=== PATIENT | male | born 1960 | race Two or more races ===

== ENCOUNTER 2021-07-14 20:11 | Inpatient (IN) | payer OTHER, MEDICAID ==
[~2021-07-14] VITALS: Ht 172.7 cm; Wt 123.1 kg
[2021-07-15 02:47] LABS: Basophils # (auto) 0 10 ^3/uL (0-0.2); Eosinophils # (auto) 0 10 ^3/uL (0-0.8); Eosinophils % (auto) 0.1 % (0.0-7.0)
[2021-07-15 02:50] LABS: Basophils % (auto) 0.2 % (0.0-2.0); Hematocrit 21.3 % (41.0-53.0); Hemoglobin 7.4 g/dL (13.5-17.5); Lymphocytes # (auto) 0.6 10 ^3/uL (0.4-5.4); Lymphocytes % (auto) 3.3 % (10.0-50.0); Mean Corpuscular Hemoglobin 30.9 pg (28.0-32.0); Mean Corpuscular Hgb Conc. 34.6 g/dL (32.0-36.0); Mean Corpuscular Volume 89.5 fL (80.0-100.0); Monocytes # (auto) 2.2 10 ^3/uL (0-1.3); Monocytes % (auto) 12.2 % (0.0-12.0); Neutrophils # (auto) 14.9 10 ^3/uL (1.6-8.6); Neutrophils % (auto) 84.2 % (37.0-80.0); Red Blood Cells 2.38 10^6/uL (4.5-5.90); Red Cell Distribution Width 14.5 % (11.8-14.3); White Blood Cell 17.7 10^3/uL (4.4-10.8)
[2021-07-15 02:58] LABS: Albumin 2.2 g/dL (3.4-5.0); BUN/Creatinine Ratio 6.6; Calcium 8.2 mg/dL (8.5-10.1); Potassium 3.9 mmol/L (3.5-5.1)
[2021-07-15 03:01] LABS: Bilirubin, Total 0.7 mg/dL (0.2-1.0); Total Protein 6.4 g/dL (6.4-8.2)
[2021-07-15 06:01] LABS: Urine Bacteria NONE SEEN /hpf (None Seen); Urine Blood 3+ /uL (Negative); Urine Specific Gravity 1.018 (1.001-1.035); Urine WBC 1410 /hpf (0 - 3); Urine WBC Clumps PRESENT /hpf (None Seen)
[2021-07-15] MEDS ORDERED: cefTRIAXone 1GM/50ML D5W 50 ML IV ONE (06:30)
[2021-07-15] MEDS ORDERED: PROMETHAZINE HCL 25 MG/ML 1ML IV PRN (08:45)
[2021-07-15] MEDS ORDERED: MORPHINE SULFATE INJECTION 2 MG/ML SYRG IV PRN (08:45)
[2021-07-15] MEDS ORDERED: traMADol HCL 50 MG TAB PO PRN (08:45)
[2021-07-15] MEDS ORDERED: TEMAZEPAM 15 MG CAP PO PRN (08:45)
[2021-07-15] MEDS ORDERED: NITROGLYCERIN 0.4 MG SL TAB SL PRN (08:45)
[2021-07-15] MEDS ORDERED: DEXTROSE (50%) 50ML SYRG IV PRN (08:45)
[2021-07-15 08:53] LABS: INR 1.19 (0.9-1.15)
[2021-07-15] MEDS: cefTRIAXone 1GM/50ML D5W 50 ML IV SCH (09:00)
[2021-07-15 10:34] VITALS: BP 133/46
[2021-07-15 10:49] VITALS: BP 114/63
[2021-07-15] MEDS: InsuLIN REG 1unit/0.01ml Soln (100units/ml) SC SCH ×3 (11:30→21:51)
[2021-07-15] MEDS: ACCU-CHEK COMFORT CURVE STRIP VI SCH ×3 (11:54→21:51)
[2021-07-15 12:37] VITALS: BP 130/72
[2021-07-15 12:54] VITALS: BP 132/64
[2021-07-15] MEDS ORDERED: FURO40TA4 PO (15:30)
[2021-07-15] MEDS ORDERED: PANT40TA2 PO (15:30)
[2021-07-15] MEDS ORDERED: ASPI-717 PO (15:30)
[2021-07-15] MEDS ORDERED: DULO20CA PO (15:30)
[2021-07-15] MEDS ORDERED: METO-158 PO (15:30)
[2021-07-15] MEDS ORDERED: NIFE90TA49 PO (15:30)
[2021-07-15] MEDS ORDERED: ATOR-47 PO (15:30)
[2021-07-15] MEDS ORDERED: INSLANTI SC (15:30)
[2021-07-15] MEDS ORDERED: FERR-20 PO (15:30)
[2021-07-15] MEDS ORDERED: GABA300C10 PO (15:30)
[2021-07-15] MEDS ORDERED: FINA5TAB4 PO (15:30)
[2021-07-15] MEDS ORDERED: FLUT250M2 INH (15:30)
[2021-07-15] MEDS ORDERED: MAGN400T40 PO (15:30)
[2021-07-15] MEDS ORDERED: CHOL20007 PO (15:30)
[2021-07-15] MEDS ORDERED: LOPE2CAP PO (15:30)
[2021-07-15 17:00] VITALS: BP 129/62
[2021-07-15] MEDS: METOPROLOL TARTRATE 50 MG TAB PO SCH (21:31)
[2021-07-15] MEDS: ATORVASTATIN 20 MG TAB PO SCH (21:31)
[2021-07-15 22:00] VITALS: BP 137/62
[2021-07-15] MEDS: LORazepam 0.5 MG TAB PO PRN (23:00)
[2021-07-16] VITALS (7 sets, daily range): BP systolic 60–141; BP diastolic 57–76
[2021-07-16 05:59] LABS: Eosinophils # (auto) 0.1 10 ^3/uL (0-0.8); Lymphocytes # (auto) 0.8 10 ^3/uL (0.4-5.4); Monocytes # (auto) 1.7 10 ^3/uL (0-1.3); Neutrophils % (auto) 82.3 % (37.0-80.0)
[2021-07-16 06:01] LABS: Basophils # (auto) 0 10 ^3/uL (0-0.2); Basophils % (auto) 0.2 % (0.0-2.0); Hematocrit 20.6 % (41.0-53.0); Hemoglobin 7.2 g/dL (13.5-17.5); Lymphocytes % (auto) 5.5 % (10.0-50.0); Mean Corpuscular Hemoglobin 30.8 pg (28.0-32.0); Mean Corpuscular Hgb Conc. 34.7 g/dL (32.0-36.0); Mean Corpuscular Volume 88.7 fL (80.0-100.0); Neutrophils # (auto) 12.6 10 ^3/uL (1.6-8.6); Red Blood Cells 2.33 10^6/uL (4.5-5.90); Red Cell Distribution Width 14.6 % (11.8-14.3); White Blood Cell 15.3 10^3/uL (4.4-10.8)
[2021-07-16 06:09] LABS: Albumin 1.9 g/dL (3.4-5.0); BUN/Creatinine Ratio 8.2; Calcium 7.8 mg/dL (8.5-10.1); Potassium 3.6 mmol/L (3.5-5.1)
[2021-07-16 06:11] LABS: Bilirubin, Total 0.7 mg/dL (0.2-1.0); Total Protein 5.4 g/dL (6.4-8.2)
[2021-07-16] MEDS: ACCU-CHEK COMFORT CURVE STRIP VI SCH ×4 (06:26→21:49)
[2021-07-16] MEDS: InsuLIN REG 1unit/0.01ml Soln (100units/ml) SC SCH ×4 (06:26→22:01)
[2021-07-16] MEDS: cefTRIAXone 1GM/50ML D5W 50 ML IV SCH (08:55)
[2021-07-16] MEDS: METOPROLOL TARTRATE 50 MG TAB PO SCH ×2 (08:56→21:53)
[2021-07-16] MEDS ORDERED: LIDOCAINE 2% JELLY 11ml (GLYDO) UR ONE (16:00)
[2021-07-16] MEDS: FERROUS SULFATE 325mg EC TAB PO SCH (18:09)
[2021-07-16] MEDS: ATORVASTATIN 20 MG TAB PO SCH (21:52)
[2021-07-16] MEDS: Fluticasone-Salmeterol (Advair Diskus 250/50) IN SCH (22:00)
[2021-07-16] MEDS ORDERED: LOPERAMIDE HCL 2 MG CAP PO PRN (22:00)
[2021-07-16] MEDS: LORazepam 0.5 MG TAB PO PRN (22:09)
[2021-07-17 05:00] VITALS: BP_SYST 106; BP_SYST 155; BP_DIAS 70; BP_DIAS 74
[2021-07-17 05:45] LABS: BUN/Creatinine Ratio 10.1; Calcium 7.9 mg/dL (8.5-10.1); Potassium 4.1 mmol/L (3.5-5.1)
[2021-07-17] MEDS: ACCU-CHEK COMFORT CURVE STRIP VI SCH ×4 (06:26→21:43)
[2021-07-17] MEDS: InsuLIN REG 1unit/0.01ml Soln (100units/ml) SC SCH ×4 (06:26→22:01)
[2021-07-17] MEDS: FERROUS SULFATE 325mg EC TAB PO SCH ×2 (08:19→17:43)
[2021-07-17 09:00] VITALS: BP 151/68
[2021-07-17 09:40] LABS: Eosinophils # (auto) 0.2 10 ^3/uL (0-0.8); Hemoglobin 7.3 g/dL (13.5-17.5); Neutrophils # (auto) 7.2 10 ^3/uL (1.6-8.6)
[2021-07-17 09:42] LABS: Basophils # (auto) 0 10 ^3/uL (0-0.2); Basophils % (auto) 0.3 % (0.0-2.0); Eosinophils % (auto) 1.9 % (0.0-7.0); Hematocrit 20.8 % (41.0-53.0); Lymphocytes # (auto) 0.6 10 ^3/uL (0.4-5.4); Lymphocytes % (auto) 6.6 % (10.0-50.0); Mean Corpuscular Hemoglobin 31.1 pg (28.0-32.0); Mean Corpuscular Volume 88.9 fL (80.0-100.0); Monocytes # (auto) 1.1 10 ^3/uL (0-1.3); Monocytes % (auto) 12.5 % (0.0-12.0); Neutrophils % (auto) 78.7 % (37.0-80.0); Red Blood Cells 2.34 10^6/uL (4.5-5.90); Red Cell Distribution Width 14.6 % (11.8-14.3); White Blood Cell 9.1 10^3/uL (4.4-10.8)
[2021-07-17] MEDS: cefTRIAXone 1GM/50ML D5W 50 ML IV SCH (09:53)
[2021-07-17] MEDS: DULOXETINE HCL 20 MG PO SCH (09:53)
[2021-07-17] MEDS: Fluticasone-Salmeterol (Advair Diskus 250/50) IN SCH ×2 (09:53→21:43)
[2021-07-17] MEDS: METOPROLOL TARTRATE 50 MG TAB PO SCH ×2 (09:54→21:51)
[2021-07-17] MEDS: FUROSEMIDE 40 MG TAB PO SCH (09:54)
[2021-07-17] MEDS: FINASTERIDE 5 MG TAB PO SCH (09:55)
[2021-07-17] MEDS: PANTOPRAZOLE 40 MG TAB PO SCH (09:55)
[2021-07-17] MEDS: NIFEdipine ER 30 MG TAB PO SCH (09:55)
[2021-07-17] MEDS ORDERED: GABAPENTIN 300 MG CAP PO SCH (10:00)
[2021-07-17] MEDS: INSULIN LANTUS (GLARGINE) 1 /0.01ml (100units/ml) SC SCH (10:05)
[2021-07-17] MEDS: ACETAMINOPHEN 500 MG TAB PO PRN (10:28)
[2021-07-17 13:11] VITALS: BP 165/78
[2021-07-17] MEDS: PIPERACILLIN-TAZOB 2.25GM 50 ML IV SCH ×2 (14:40→19:20)
[2021-07-17 17:00] VITALS: BP 143/77
[2021-07-17] MEDS: LORazepam 0.5 MG TAB PO PRN (21:50)
[2021-07-17] MEDS: ATORVASTATIN 20 MG TAB PO SCH (21:50)
[2021-07-17] MEDS: GABAPENTIN 300 MG CAP PO SCH (21:51)
[2021-07-17 22:00] VITALS: BP 138/72
[2021-07-17] MEDS ORDERED: CHOLESTYRAMINE 4 GM POWDER GT SCH (23:00)
[2021-07-18] MEDS: PIPERACILLIN-TAZOB 2.25GM 50 ML IV SCH ×4 (01:36→19:58)
[2021-07-18 05:00] VITALS: BP 133/74
[2021-07-18 05:39] LABS: Hemoglobin 7.8 g/dL (13.5-17.5); White Blood Cell 8.6 10^3/uL (4.4-10.8)
[2021-07-18 05:44] LABS: Hematocrit 22.4 % (41.0-53.0); Mean Corpuscular Hemoglobin 31.1 pg (28.0-32.0); Mean Corpuscular Hgb Conc. 34.8 g/dL (32.0-36.0); Mean Corpuscular Volume 89.4 fL (80.0-100.0); Red Blood Cells 2.51 10^6/uL (4.5-5.90)
[2021-07-18 05:58] LABS: Basophils % (manual) 0 (0.0-2.0); Blast Cells 0; Metamyelocytes % 0; Myelocytes % 0; Promyelocytes % 0; Reactive Lymphocytes 0
[2021-07-18 06:03] LABS: Potassium 4.3 mmol/L (3.5-5.1)
[2021-07-18 06:10] LABS: Albumin 2.1 g/dL (3.4-5.0); BUN/Creatinine Ratio 11.8; Bilirubin, Total 0.3 mg/dL (0.2-1.0); Total Protein 5.9 g/dL (6.4-8.2)
[2021-07-18] MEDS: ACCU-CHEK COMFORT CURVE STRIP VI SCH ×4 (06:49→22:01)
[2021-07-18] MEDS: InsuLIN REG 1unit/0.01ml Soln (100units/ml) SC SCH ×4 (06:49→22:00)
[2021-07-18] MEDS: FERROUS SULFATE 325mg EC TAB PO SCH ×2 (08:05→17:41)
[2021-07-18 08:29] LABS: Band Neutrophils % (manual) 3; Eosinophils % (manual) 3 (0-7); Lymphocytes % (manual) 9 (10.0-50.0); Monocytes % (manual) 15 (0-12)
[2021-07-18 09:00] VITALS: BP 129/61
[2021-07-18] MEDS: Fluticasone-Salmeterol (Advair Diskus 250/50) IN SCH ×2 (10:00→22:00)
[2021-07-18] MEDS: DULOXETINE HCL 20 MG PO SCH (10:09)
[2021-07-18] MEDS: METOPROLOL TARTRATE 50 MG TAB PO SCH ×2 (10:10→22:06)
[2021-07-18] MEDS: FUROSEMIDE 40 MG TAB PO SCH (10:10)
[2021-07-18] MEDS: GABAPENTIN 300 MG CAP PO SCH ×2 (10:10→22:06)
[2021-07-18] MEDS: FINASTERIDE 5 MG TAB PO SCH (10:11)
[2021-07-18] MEDS: NIFEdipine ER 30 MG TAB PO SCH (10:11)
[2021-07-18] MEDS: PANTOPRAZOLE 40 MG TAB PO SCH (10:11)
[2021-07-18] MEDS: INSULIN LANTUS (GLARGINE) 1 /0.01ml (100units/ml) SC SCH (10:14)
[2021-07-18] MEDS: CHOLESTYRAMINE 4 GM POWDER GT SCH ×3 (11:47→22:05)
[2021-07-18 13:00] VITALS: BP 143/71
[2021-07-18 17:00] VITALS: BP 117/54
[2021-07-18 21:40] VITALS: BP 125/62
[2021-07-18] MEDS: ATORVASTATIN 20 MG TAB PO SCH (22:05)
[2021-07-18] MEDS: LORazepam 0.5 MG TAB PO PRN (22:15)
[2021-07-19 00:45] VITALS: BP 125/62
[2021-07-19] MEDS: PIPERACILLIN-TAZOB 2.25GM 50 ML IV SCH ×4 (01:45→20:28)
[2021-07-19 05:06] VITALS: BP 114/55
[2021-07-19] MEDS: CHOLESTYRAMINE 4 GM POWDER GT SCH ×4 (05:33→21:09)
[2021-07-19] MEDS: ACCU-CHEK COMFORT CURVE STRIP VI SCH ×4 (06:31→22:13)
[2021-07-19] MEDS: InsuLIN REG 1unit/0.01ml Soln (100units/ml) SC SCH ×4 (06:32→22:29)
[2021-07-19 07:51] LABS: Basophils # (auto) 0.1 10 ^3/uL (0-0.2); Basophils % (auto) 0.8 % (0.0-2.0); Eosinophils # (auto) 0.4 10 ^3/uL (0-0.8); Eosinophils % (auto) 4.7 % (0.0-7.0); Hemoglobin 7.6 g/dL (13.5-17.5); Lymphocytes # (auto) 0.9 10 ^3/uL (0.4-5.4); Lymphocytes % (auto) 9.5 % (10.0-50.0); Mean Corpuscular Hemoglobin 30.3 pg (28.0-32.0); Mean Corpuscular Hgb Conc. 34.4 g/dL (32.0-36.0); Mean Corpuscular Volume 88.1 fL (80.0-100.0); Monocytes # (auto) 1.3 10 ^3/uL (0-1.3); Monocytes % (auto) 13.9 % (0.0-12.0); Neutrophils # (auto) 6.6 10 ^3/uL (1.6-8.6); Neutrophils % (auto) 71.1 % (37.0-80.0); Red Cell Distribution Width 14.4 % (11.8-14.3); White Blood Cell 9.2 10^3/uL (4.4-10.8)
[2021-07-19 08:05] LABS: Calcium 7.8 mg/dL (8.5-10.1); Potassium 4.5 mmol/L (3.5-5.1)
[2021-07-19 08:09] LABS: BUN/Creatinine Ratio 10.5; Bilirubin, Total 0.3 mg/dL (0.2-1.0); Total Protein 5.7 g/dL (6.4-8.2)
[2021-07-19] MEDS: Fluticasone-Salmeterol (Advair Diskus 250/50) IN SCH ×2 (08:58→21:14)
[2021-07-19] MEDS: FERROUS SULFATE 325mg EC TAB PO SCH ×2 (08:59→17:17)
[2021-07-19] MEDS: NIFEdipine ER 30 MG TAB PO SCH (08:59)
[2021-07-19] MEDS: PANTOPRAZOLE 40 MG TAB PO SCH (08:59)
[2021-07-19] MEDS: FINASTERIDE 5 MG TAB PO SCH (09:00)
[2021-07-19] MEDS: GABAPENTIN 300 MG CAP PO SCH ×2 (09:00→22:20)
[2021-07-19] MEDS: FUROSEMIDE 40 MG TAB PO SCH (09:00)
[2021-07-19] MEDS: METOPROLOL TARTRATE 50 MG TAB PO SCH ×2 (09:00→22:20)
[2021-07-19 09:10] VITALS: BP 122/62
[2021-07-19] MEDS: DULOXETINE HCL 20 MG PO SCH (10:14)
[2021-07-19] MEDS: INSULIN LANTUS (GLARGINE) 1 /0.01ml (100units/ml) SC SCH (11:59)
[2021-07-19 13:00] VITALS: BP 120/63
[2021-07-19 17:00] VITALS: BP 138/67
[2021-07-19] MEDS: SOD CHL 0.45% 1,000 ML IV SCH (17:17)
[2021-07-19 22:00] VITALS: BP 126/61
[2021-07-19] MEDS: ATORVASTATIN 20 MG TAB PO SCH (22:19)
[2021-07-19] MEDS: LORazepam 0.5 MG TAB PO PRN (22:32)
[2021-07-20] MEDS: PIPERACILLIN-TAZOB 2.25GM 50 ML IV SCH ×4 (01:16→21:39)
[2021-07-20] MEDS: ACETAMINOPHEN 500 MG TAB PO PRN (03:35)
[2021-07-20 05:00] VITALS: BP 133/64
[2021-07-20] MEDS: ACCU-CHEK COMFORT CURVE STRIP VI SCH ×4 (06:19→21:41)
[2021-07-20] MEDS: CHOLESTYRAMINE 4 GM POWDER GT SCH ×4 (06:19→21:40)
[2021-07-20] MEDS: InsuLIN REG 1unit/0.01ml Soln (100units/ml) SC SCH ×4 (06:30→21:42)
[2021-07-20 07:29] LABS: Basophils # (auto) 0.1 10 ^3/uL (0-0.2); Eosinophils # (auto) 0.5 10 ^3/uL (0-0.8); Hemoglobin 8.1 g/dL (13.5-17.5); Monocytes # (auto) 1.1 10 ^3/uL (0-1.3); Neutrophils # (auto) 8.7 10 ^3/uL (1.6-8.6); Red Cell Distribution Width 14.1 % (11.8-14.3)
[2021-07-20 07:32] LABS: Basophils % (auto) 0.9 % (0.0-2.0); Eosinophils % (auto) 4.4 % (0.0-7.0); Hematocrit 24.1 % (41.0-53.0); Lymphocytes % (auto) 8.8 % (10.0-50.0); Mean Corpuscular Hemoglobin 30.5 pg (28.0-32.0); Mean Corpuscular Hgb Conc. 33.7 g/dL (32.0-36.0); Mean Corpuscular Volume 90.3 fL (80.0-100.0); Monocytes % (auto) 9.5 % (0.0-12.0); Neutrophils % (auto) 76.4 % (37.0-80.0); Red Blood Cells 2.67 10^6/uL (4.5-5.90); White Blood Cell 11.3 10^3/uL (4.4-10.8)
[2021-07-20 07:52] LABS: Albumin 2.1 g/dL (3.4-5.0); Calcium 7.6 mg/dL (8.5-10.1); Potassium 4.9 mmol/L (3.5-5.1)
[2021-07-20 07:56] LABS: BUN/Creatinine Ratio 10.9; Bilirubin, Total 0.3 mg/dL (0.2-1.0)
[2021-07-20] MEDS: FERROUS SULFATE 325mg EC TAB PO SCH ×2 (08:23→17:59)
[2021-07-20 09:03] VITALS: BP 126/51
[2021-07-20] MEDS: DULOXETINE HCL 20 MG PO SCH (09:58)
[2021-07-20] MEDS: FUROSEMIDE 40 MG TAB PO SCH (09:58)
[2021-07-20] MEDS: GABAPENTIN 300 MG CAP PO SCH ×2 (09:58→21:41)
[2021-07-20] MEDS: METOPROLOL TARTRATE 50 MG TAB PO SCH ×2 (09:58→21:40)
[2021-07-20] MEDS: PANTOPRAZOLE 40 MG TAB PO SCH (09:59)
[2021-07-20] MEDS: NIFEdipine ER 30 MG TAB PO SCH (09:59)
[2021-07-20] MEDS: FINASTERIDE 5 MG TAB PO SCH (09:59)
[2021-07-20] MEDS: Fluticasone-Salmeterol (Advair Diskus 250/50) IN SCH ×2 (10:00→21:45)
[2021-07-20] MEDS: INSULIN LANTUS (GLARGINE) 1 /0.01ml (100units/ml) SC SCH (12:05)
[2021-07-20] MEDS: SOD CHL 0.45% 1,000 ML IV SCH (12:30)
[2021-07-20 12:57] VITALS: BP 138/66
[2021-07-20] MEDS ORDERED: LEVO-28 PO (17:21)
[2021-07-20] MEDS ORDERED: CHL4PW GT (17:21)
[2021-07-20 17:22] VITALS: BP 160/78
[2021-07-20] MEDS: ATORVASTATIN 20 MG TAB PO SCH (21:40)
[2021-07-20] MEDS: LORazepam 0.5 MG TAB PO PRN (21:46)
[2021-07-20 22:00] VITALS: BP 128/63
[2021-07-21] MEDS: ACETAMINOPHEN 500 MG TAB PO PRN ×3 (01:35→09:37)
[2021-07-21] MEDS: PIPERACILLIN-TAZOB 2.25GM 50 ML IV SCH ×3 (01:45→13:33)
[2021-07-21 05:09] VITALS: BP 138/71
[2021-07-21] MEDS: CHOLESTYRAMINE 4 GM POWDER GT SCH ×2 (06:21→11:54)
[2021-07-21 06:49] LABS: Hemoglobin 8.4 g/dL (13.5-17.5)
[2021-07-21 06:53] LABS: Hematocrit 23.7 % (41.0-53.0); Mean Corpuscular Hgb Conc. 35.3 g/dL (32.0-36.0); Mean Corpuscular Volume 90.5 fL (80.0-100.0); Red Blood Cells 2.62 10^6/uL (4.5-5.90); Red Cell Distribution Width 14.1 % (11.8-14.3); White Blood Cell 14.1 10^3/uL (4.4-10.8)
[2021-07-21 06:58] LABS: Band Neutrophils % (manual) 0; Basophils % (manual) 0 (0.0-2.0); Blast Cells 0; Metamyelocytes % 0; Myelocytes % 0; Promyelocytes % 0; Reactive Lymphocytes 0
[2021-07-21] MEDS: InsuLIN REG 1unit/0.01ml Soln (100units/ml) SC SCH ×2 (07:00→11:56)
[2021-07-21 07:02] LABS: Potassium 5.4 mmol/L (3.5-5.1)
[2021-07-21 07:14] LABS: Albumin 2.4 g/dL (3.4-5.0); BUN/Creatinine Ratio 10.6; Bilirubin, Total 0.3 mg/dL (0.2-1.0); Calcium 7.9 mg/dL (8.5-10.1); Total Protein 6.4 g/dL (6.4-8.2)
[2021-07-21 07:38] LABS: Eosinophils % (manual) 5 (0-7); Lymphocytes % (manual) 9 (10.0-50.0); Monocytes % (manual) 8 (0-12)
[2021-07-21] MEDS: FERROUS SULFATE 325mg EC TAB PO SCH (08:05)
[2021-07-21] MEDS: ACCU-CHEK COMFORT CURVE STRIP VI SCH ×2 (08:14→11:54)
[2021-07-21] MEDS: SOD CHL 0.45% 1,000 ML IV SCH (08:30)
[2021-07-21 09:00] VITALS: BP 140/71
[2021-07-21] MEDS: DULOXETINE HCL 20 MG PO SCH (09:37)
[2021-07-21] MEDS: FUROSEMIDE 40 MG TAB PO SCH (09:37)
[2021-07-21] MEDS: Fluticasone-Salmeterol (Advair Diskus 250/50) IN SCH (09:37)
[2021-07-21] MEDS: METOPROLOL TARTRATE 50 MG TAB PO SCH (09:37)
[2021-07-21] MEDS: FINASTERIDE 5 MG TAB PO SCH (09:38)
[2021-07-21] MEDS: NIFEdipine ER 30 MG TAB PO SCH (09:38)
[2021-07-21] MEDS: PANTOPRAZOLE 40 MG TAB PO SCH (09:38)
[2021-07-21] MEDS: GABAPENTIN 300 MG CAP PO SCH (09:38)
[2021-07-21] MEDS: INSULIN LANTUS (GLARGINE) 1 /0.01ml (100units/ml) SC SCH (10:36)
[2021-07-21 13:00] VITALS: BP 126/68
== END 2021-07-21 17:03 | disposition home health service (06) | DRG 690 ==
LOC: EDBD 20:11 → ER 20:14 → TELE 07-15 08:39 → TELE-CENTR 07-15 11:27
PROVIDERS: ADMIT Internal Medicine; ATTEND Internal Medicine
PROC: 30233N1 Transfusion of Nonautologous Red Blood Cells into Peripheral Vein, Percutaneous Approach (ICD-10-PCS; principal; 2021-07-15)
PROC: 02HV33Z Insertion of Infusion Device into Superior Vena Cava, Percutaneous Approach (ICD-10-PCS; 2021-07-15)
PROC: 5A09357 Assistance with Respiratory Ventilation, Less than 24 Consecutive Hours, Continuous Positive Airway Pressure (ICD-10-PCS; 2021-07-16)
DX: N30.91 Cystitis, unspecified with hematuria (principal); I12.0 Hypertensive chronic kidney disease with stage 5 chronic kidney disease or end stage renal disease; E87.1 Hypo-osmolality and hyponatremia; E46 Unspecified protein-calorie malnutrition; Z68.41 Body mass index [BMI] 40.0-44.9, adult; N18.5 Chronic kidney disease, stage 5; R31.0 Gross hematuria; J44.9 Chronic obstructive pulmonary disease, unspecified; G47.30 Sleep apnea, unspecified; E66.01 Morbid (severe) obesity due to excess calories; Z99.2 Dependence on renal dialysis; D63.1 Anemia in chronic kidney disease; E83.51 Hypocalcemia; E78.5 Hyperlipidemia, unspecified; E87.5 Hyperkalemia; N40.1 Benign prostatic hyperplasia with lower urinary tract symptoms; R33.8 Other retention of urine; Z20.822 Contact with and (suspected) exposure to COVID-19; E11.22 Type 2 diabetes mellitus with diabetic chronic kidney disease; Z79.4 Long term (current) use of insulin; Z79.51 Long term (current) use of inhaled steroids; Z93.2 Ileostomy status; Z93.3 Colostomy status; Z79.82 Long term (current) use of aspirin; Z82.49 Family history of ischemic heart disease and other diseases of the circulatory system; Z83.3 Family history of diabetes mellitus; Z86.73 Personal history of transient ischemic attack (TIA), and cerebral infarction without residual deficits; Z87.891 Personal history of nicotine dependence; Z90.49 Acquired absence of other specified parts of digestive tract
CPT/HCPCS: 36415; 71045; 74176; 80048; 80053; 81001; 82962; 83036; 83605; 85007; 85025; 85027; 85610; 86850; 86900; 86901; 86920; 87040; 87081; 87086; 87088; 87186; 87426; 94660; 96365; 96366; 97110; 97116; 97163; G0378; J0696; J1815; J2543

== ENCOUNTER 2021-09-01 12:26 | Emergency (ER) | payer OTHER, MEDICAID ==
[~2021-09-01] VITALS: Ht 182.9 cm; Wt 115.7 kg
[~2021-09-01 12:26] MED LIST: ASPI-717 PO; ATOR-47 PO; CHL4PW GT; CHOL20007 PO; DULO20CA PO; FERR-20 PO; FINA5TAB4 PO; FLUT250M2 INH; FURO40TA4 PO; GABA300C10 PO; INSLANTI SC; LEVO-28 PO; LOPE2CAP PO; MAGN400T40 PO; METO-158 PO; NIFE90TA49 PO; PANT40TA2 PO
[2021-09-01 14:24] LABS: Basophils # (auto) 0.1 10 ^3/uL (0-0.2); Basophils % (auto) 0.6 % (0.0-2.0); Eosinophils # (auto) 0.3 10 ^3/uL (0-0.8); Eosinophils % (auto) 2.1 % (0.0-7.0); Hematocrit 29.2 % (41.0-53.0); Lymphocytes # (auto) 1.1 10 ^3/uL (0.4-5.4); Lymphocytes % (auto) 7.2 % (10.0-50.0); Mean Corpuscular Hemoglobin 30.1 pg (28.0-32.0); Mean Corpuscular Hgb Conc. 34.4 g/dL (32.0-36.0); Mean Corpuscular Volume 87.5 fL (80.0-100.0); Monocytes # (auto) 1.1 10 ^3/uL (0-1.3); Neutrophils # (auto) 12.5 10 ^3/uL (1.6-8.6); Neutrophils % (auto) 83.1 % (37.0-80.0); Red Blood Cells 3.33 10^6/uL (4.5-5.90); Red Cell Distribution Width 14.4 % (11.8-14.3)
[2021-09-01 14:53] LABS: BUN/Creatinine Ratio 11.8; Calcium 8.9 mg/dL (8.5-10.1); Potassium 5.2 mmol/L (3.5-5.1)
[2021-09-01 17:35] LABS: Urine Bacteria MANY /hpf (None Seen); Urine Blood 1+ /uL (Negative); Urine Mucus FEW (None Seen); Urine Specific Gravity 1.009 (1.001-1.035); Urine WBC 72 /hpf (0 - 3); Urine WBC Clumps PRESENT /hpf (None Seen)
[2021-09-01] MEDS ORDERED: cefTRIAXone 1GM/50ML D5W 50 ML IV ONE (18:15)
[2021-09-01 18:30] VITALS: BP 132/82
[2021-09-01] MEDS ORDERED: cefTRIAXone SOD 1,000 MG VL IM ONE (18:30)
== END 2021-09-01 18:43 | disposition home or self-care (01) ==
LOC: ER 12:26 → EDBD 12:26 → ER 18:43
DX: I12.0 Hypertensive chronic kidney disease with stage 5 chronic kidney disease or end stage renal disease (principal); E11.22 Type 2 diabetes mellitus with diabetic chronic kidney disease; D63.1 Anemia in chronic kidney disease; N18.6 End stage renal disease; J44.9 Chronic obstructive pulmonary disease, unspecified; Z86.73 Personal history of transient ischemic attack (TIA), and cerebral infarction without residual deficits; Z99.2 Dependence on renal dialysis
CPT/HCPCS: 36415; 51702; 80048; 81001; 85025; 99284; J0696